=== PATIENT | female | born 1995 ===

== ENCOUNTER 2018-05-31 10:50 | Emergency (ER) | payer MEDICAID ==
--- NOTE | 2018-05-31 11:26 | UC ---
Skin Complaint HPI - HPI Summary HPI Summary: Patient: 4 day old rash on upper lid, right eye. Itches. Not spreading. No fever. No hx of shingles. VSS: hypertensive; not being treated. Nurse: pt states she developed "little bumps on my eyes." no itching at that time. pt woke up on friday with swelling to rt eye. pt states yesterday it was less swollen but today her entire rt upper eye lid is swollen, red and pustuals. pt states this area itches and eason. - History of Current Complaint Chief Complaint: UCEye Time Seen by Provider: 05/31/18 11:13 Stated Complaint: EYE COMPLAINT Hx Last Menstrual Period: 05/17 Pain Intensity: 2 - Allergy/Home Medications Allergies/Adverse Reactions: Allergies Allergy/AdvReac Type Severity Reaction Status Date / Time No Known Allergies Allergy Verified 05/31/18 11:03 Review of Systems All Other Systems Reviewed And Are Negative: Yes Constitutional: Positive: Negative Skin: Positive: Rash - on upper eyelid of right eye Eyes: Positive: Negative ENT: Positive: Negative Respiratory: Positive: Negative Cardiovascular: Positive: Negative Gastrointestinal: Positive: Negative Genitourinary: Positive: Negative Motor: Positive: Negative Neurovascular: Positive: Negative Musculoskeletal: Positive: Negative Neurological: Positive: Negative Psychological: Positive: Negative Is Patient Immunocompromised?: No PMH/Surg Hx/FS Hx/Imm Hx - Additional Past Medical History Additional PMH: Patient has non contributory PMH. No asthma. Works as homemaker; non-smoker. Family hx: Cancer, CVD, HTN. Previously Healthy: Yes - Surgical History Surgical History: None - Social History Alcohol Use: Occasionally Substance Use Type: None Smoking Status (MU): Never Smoked Tobacco Physical Exam - Summary Physical Exam Summary: Appearance: The patient is well-appearing, is in no pain or distress, and is well-nourished. Eyes: Conjunctiva are clear. Pupils are equal and reactive to light and accommodation. Extra ocular muscle movement is intact. No eye pain or visual disturbance. ENT: The hearing is grossly normal, the pharynx is normal, and the TMs are normal. There is no muffled or hoarse voice. No stridor. Neck: The neck is supple and there is no lymphadenopathy. Respiratory: The chest is nontender to palpation and without crepitus. The lungs are clear, there are normal breath sounds, and there is no respiratory distress. No wheezes, rales or rhonchi. Cardiovascular: Heart sounds reveal a regular rate and rhythm. There are no clicks, rubs or murmurs. There are no carotid bruits or thrills. Circulation is grossly intact. Abdomen: The abdomen is soft and nontender. There is no organomegaly. Bowel sounds are present and within normal limits. No point tenderness at McBurneys point. Musculoskeletal: Strength is intact. The patient moves all extremities. x. Neurological: The patient is alert. Motor and sensory are examination grossly intact. Speech is normal. Psychological: The patient displays age appropriate behavior Skin: Tiny pustules on erythematous base c/w localized contact dermatitis. NO EYE INVOLVEMENT. Area is semi-[place] on upper lid. No involvement of upper eyebrow area or suggestion of zoster. Vital Signs: Initial Vital Signs Temp 97.7 F 05/31/18 11:00 Pulse 69 05/31/18 11:00 Resp 18 05/31/18 11:00 BP 134/88 05/31/18 11:00 Pulse Ox 99 05/31/18 11:00 Course/Dx - Course Course Of Treatment: 4 day old rash on upper lid, right eye. Itches. Not spreading. No fever. No hx of shingles. Physical exam c/w contact dermatitis , perhaps to drops put into eye the day before. Denies make up use. MEDICATION REVIEWED. HYPERTENSION NOTED: patient will re check over the next 3 weeks. - Differential Diagnoses - Skin Complaint Differential Diagnoses: Drug Rash, Eczema, Impetigo - Diagnoses Provider Diagnosis: Contact dermatitis Discharge - Sign-Out/Discharge Documenting (check all that apply): Patient Departure All imaging exams completed and their final reports reviewed: No Studies - Discharge Plan Condition: Stable Disposition: HOME Prescriptions: Triamcinolone 0.1% CREAM (NF) [Kenalog 0.1% Cream (NF)] 30 gm TOPICAL TID #1 tube MDD 3 Patient Education Materials: Contact Dermatitis (DC) Referrals: No Primary Care Phys,NOPCP [Primary Care Provider] - Additional Instructions: WE DISCUSSED: PLEASE SEEK CARE AT THE EMERGENCY DEPARTMENT IF SYMPTOMS WORSEN OR IF NEW SYMPTOMS DEVELOP. FOLLOW UP WITH YOUR PRIMARY CARE PHYSICIAN IF CONDITION CONTINUES BEYOND 3 DAYS WITHOUT IMPROVEMENT. YOUR DIAGNOSIS IS: contact dermatitis of your right upper eyelid YOUR PRESCRIPTION RECOMMENDATION IS: triamcinolone; apply a small amount to lid , 3 times a day for 3-5 days; if you need to use this after 5 days, recheck. OTHER INSTRUCTIONS: It may take 2 weeks for this to go away. Use the prescription for 5 days, then use over the counter hydrocortisone. - Billing Disposition and Condition Condition: STABLE Disposition: Home
== END 2018-05-31 11:45 | disposition home or self-care (01) ==
LOC: UCEAST 10:50
DX: L25.9 Unspecified contact dermatitis, unspecified cause (principal)
CPT/HCPCS: 99212; G0463